=== PATIENT | female | born 1960 | race Caucasian/White ===

== ENCOUNTER → 2022-11-12 | Outpatient (CLI) | payer BC | END | disposition home or self-care (01) | LOC: RAD 10:06 | PROVIDERS: ATTEND Physician Assistant | DX: E04.2 Nontoxic multinodular goiter (principal) | CPT/HCPCS: 76536 ==

== ENCOUNTER 2023-10-12 09:55 | Outpatient (CLI) | payer BC | END 2023-10-12 23:59 | disposition home or self-care (01) | LOC: RAD 09:55 | PROVIDERS: ATTEND Physician Assistant | DX: E04.2 Nontoxic multinodular goiter (principal) | CPT/HCPCS: 76536 ==